=== PATIENT | female | born 1970 | race Two or more races ===

== ENCOUNTER 2024-08-10 13:32 | Outpatient (AMB) | payer MEDICAID, SELFPAY ==
[2024-08-10 13:48] VITALS: BP 148/84; PULSE 89; RESP 19; TEMP 36.1; O2SAT 95; BMI 38.9
--- NOTE | 2024-08-10 13:48 | PD.ORTHCLVIS ---
Vital signs 08/10/24 13:48 Height 1.6 m Height Method Stated Weight 99.875 kg Weight Measurement Method Standing Scale BMI 38.9 BP 148/84 H Blood Pressure Source Automatic Cuff Blood Pressure Location Right Upper Arm Position Sitting Respiration 19 Pulse 89 Pulse Source Monitor Temp 97.0 F Temp Source Temporal Artery Scan Pulse Oximetry (%) 95 Oxygen Delivery Method Room Air Med/Allergies Allergies & Medications Allergies triamcinolone [From Kenalog] Allergy (Intermediate, Verified 08/10/24 13:49) Headache Medication Reconciliation carvedilol 3.125 mg tablet (Coreg) 3.125 mg PO BID 01/24/24 [History Confirmed 08/10/24] cetirizine 10 mg tablet (Zyrtec) 10 mg PO QDAY 05/11/24 [History Confirmed 08/10/24] cholecalciferol (vitamin D3) 25 mcg (1,000 unit) tablet (Vitamin D3) 25 mcg PO QDAY 05/11/24 [History Confirmed 08/10/24] diphenhydramine HCl 25 mg capsule (Benadryl) 25 mg PO HS PRN Allergy Symptoms 05/11/24 [History Confirmed 08/10/24] omega-3 fatty acids 1,000 mg PO QDAY 05/11/24 [History Confirmed 08/10/24] semaglutide 1 mg/dose (4 mg/3 mL) subcutaneous pen injector (Ozempic) 1 mg subcut QWEEK 05/11/24 [History Confirmed 08/10/24] acetaminophen 500 mg tablet (Acetaminophen Extra Strength) 1,000 mg (2 x 500 mg) PO Q6H PRN pain #90 tabs 05/14/24 [Rx Confirmed 08/10/24] aspirin 81 mg tablet,delayed release 81 mg PO BID #60 tabs 05/14/24 [Rx Confirmed 08/10/24] doxycycline hyclate 100 mg tablet 100 mg PO BID #14 tabs 05/14/24 [Rx Confirmed 08/10/24] oxycodone 5 mg tablet 5 mg PO Q6H PRN pain #28 tabs 05/14/24 [Rx Confirmed 08/10/24] pregabalin 75 mg capsule 75 mg PO BID #45 caps 05/14/24 [Rx Confirmed 08/10/24] sennosides 8.6 mg-docusate sodium 50 mg tablet (Senna-S) 1 tab-cap PO QDAY #30 tabs 05/14/24 [Rx Confirmed 08/10/24] cyclobenzaprine 5 mg tablet 5 mg PO QHS PRN muscle spasm #30 tabs 06/01/24 [Rx Confirmed 08/10/24] oxycodone 5 mg tablet 5 mg PO Q6H PRN pain #28 tabs 06/01/24 [Rx Confirmed 08/10/24] Subjective Visit Visit for: follow up visit and knee Immunization / Flu Flu Vaccine in the Last 12 Months: No Flu Vaccine Exclusion Criteria: No Exclusion Criteria History of Present Illness Chief complaint: F/U ON POST OP Date of injury / onset of symptoms: 05/14/24 Date of 1st surgery (if applicable): 05/14/24 Patient is doing well status post total knee replacement. She is 12 weeks postop. SHe has minimal pain. She walks with no assistive device Personal History Occupation: UNEMPLOYED Red flag PMH: BMI and none Pain Pain level (0-10): 6 Pain duration: COMES AND GOES Pain location: anterior Pain quality: sharp and other (specify) Pain timing: other (specify) Associated signs & symptoms: other (specify) (COLDER WEATHER IS CAUSING PAIN ) Ambulatory data Ambulatory device: none Treatments Improvement with previous injections: No Improvement with PT: No Improvement with NSAIDS: n/a Review of Systems Review of Systems: All systems negative unless otherwise noted in HPI. Exam Exam Patient is in no acute distress and is cooperative with the examination today. Patient has a normal mood and affect. Breathing is nonlabored. In no respiratory distress. Bilateral extremities were evaluated and demonstrates sensation intact to light touch. Palpable pedal pulses are present. No significant edema is present. Incision is clean dry intact. Range of motion 0 to 100 degrees Assessment and Plan Problem List (1) History of total left knee replacement: Status: Acute Plan: Patient is doing well status post left total knee replacement. She is doing well from her left total knee replacement. Plan We will see her back in 3-4 months Office Procedures GNS Level of Care Nursing/Assessment Patient Status: Established Patient Nursing Assessment/Reassesment: Medication Reconciliation, Update PMH in EMR and Vital Signs Coordination of Care: Complex Care and Chronic Disease 1-5, Education Complex Pt/Fam, Consent,records obtained, informed consent, Results/Orders obtained and Staff clarify orders Established Patient Charge Established Patient Point Assignment: 95 Past Medical History Past Medical History Have you ever been diagnosed with any of the following: Neurological Problems Seizures: No Cardiology Problems Congestive Heart Failure: No Hypertension: Yes Respiratory Problems Chronic Obstructive Pulmonary Disease (COPD): No Smoking: No Smoking Exposure: No Stomache/Intestinal Problems Hepatitis: No Obesity: Yes Genital/Urinary Problems Renal Disease: No Reproductive Problems Previous Pregnancies: Yes (4) Musculoskeletal Problems Arthritis: Yes Endocrine Problems Diabetes Mellitus Type 1: No Diabetes Mellitus Type 2: No Other Problems Hospitalization: Yes (surgery) Shingles: No Blood Transfusions: Yes Blood Transfusion Reaction: No Anesthesia Reactions: Yes (increased heart rate) Cancer: No Surgical History Total Knee Replacement: Yes Knee Pain S/P left total knee replacement, patient is doing well with no complains other than experiencing sharp pains on both of her knees because cooler weather. Patient takes ibuprofen and that seems to help with pain. She is wondering if this the sharp pain on her left knee is normal. Involved knee: left Onset: gradual Location of pain: anterior and inferior Pain scale (0-10): 6 Character: stabbing and throbbing Timing of pain: constant Exacerbated by: other (weather) Relieved by: NSAIDs History of occupational/recreational activity with repetitive motion: Yes
== END 2024-08-10 14:21 | disposition home or self-care (01) ==
PROVIDERS: PCP Student in an Organized Health Care Education/Training Program; Referring Provider Student in an Organized Health Care Education/Training Program; Supervising Provider Orthopaedic Surgery Adult Reconstructive Orthopaedic Surgery; Visit Provider Orthopaedic Surgery Adult Reconstructive Orthopaedic Surgery
DX: Z96.652 Presence of left artificial knee joint (principal); I10 Essential (primary) hypertension
CPT/HCPCS: 99213; G0463

== ENCOUNTER 2025-07-12 07:46 | Outpatient (AMB) | payer BC, SELFPAY ==
--- NOTE | 2025-07-12 08:01 | PD.ORTHCLVIS ---
Vital signs 07/12/25 08:03 Height 1.6 m Height Method Measured Weight 101.151 kg Weight Measurement Method Standing Scale BMI 39.5 BP 149/88 H Blood Pressure Source Automatic Cuff Blood Pressure Location Left Upper Arm Position Sitting Respiration 16 Pulse 62 Pulse Source Monitor Temp 97.2 F Temp Source Temporal Artery Scan Pulse Oximetry (%) 98 Oxygen Delivery Method Room Air Med/Allergies Allergies & Medications Allergies triamcinolone (From Kenalog) Allergy (Intermediate, Verified 07/12/25 08:04) Headache Medication Reconciliation carvedilol 3.125 mg tablet (Coreg) 3.125 mg PO BID 01/24/24 [History Confirmed 07/12/25] cetirizine 10 mg tablet (Zyrtec) 10 mg PO QDAY 05/11/24 [History Confirmed 07/12/25] cholecalciferol (vitamin D3) 25 mcg (1,000 unit) tablet (Vitamin D3) 25 mcg PO QDAY 05/11/24 [History Confirmed 07/12/25] diphenhydramine HCl 25 mg capsule (Benadryl) 25 mg PO HS PRN Allergy Symptoms 05/11/24 [History Confirmed 07/12/25] omega-3 fatty acids 1,000 mg PO QDAY 05/11/24 [History Confirmed 07/12/25] semaglutide 1 mg/dose (4 mg/3 mL) subcutaneous pen injector (Ozempic) 1 mg subcut QWEEK 05/11/24 [History Confirmed 07/12/25] acetaminophen 500 mg tablet (Acetaminophen Extra Strength) 1,000 mg (2 x 500 mg) PO Q6H PRN pain #90 tabs 05/14/24 [Rx Confirmed 07/12/25] aspirin 81 mg tablet,delayed release 81 mg PO BID #60 tabs 05/14/24 [Rx Confirmed 07/12/25] doxycycline hyclate 100 mg tablet 100 mg PO BID #14 tabs 05/14/24 [Rx Confirmed 07/12/25] oxycodone 5 mg tablet 5 mg PO Q6H PRN pain #28 tabs 05/14/24 [Rx Confirmed 07/12/25] pregabalin 75 mg capsule 75 mg PO BID #45 caps 05/14/24 [Rx Confirmed 07/12/25] sennosides 8.6 mg-docusate sodium 50 mg tablet (Senna-S) 1 tab-cap PO QDAY #30 tabs 05/14/24 [Rx Confirmed 07/12/25] cyclobenzaprine 5 mg tablet 5 mg PO QHS PRN muscle spasm #30 tabs 06/01/24 [Rx Confirmed 07/12/25] oxycodone 5 mg tablet 5 mg PO Q6H PRN pain #28 tabs 06/01/24 [Rx Confirmed 07/12/25] Exam Exam Patient is in no acute distress and is cooperative with the examination today. Patient has a normal mood and affect. Breathing is nonlabored. In no respiratory distress. Bilateral extremities were evaluated and demonstrates sensation intact to light touch. Palpable pedal pulses are present. No significant edema is present. Incision is clean dry intact. Range of motion 0 to 100 degrees this is for the left knee Right knee demonstrates tenderness to palpation laterally. There is valgus alignment. The knee feels stable varus valgus stress as well as AP translation Assessment and Plan Problem List (1) History of total left knee replacement: Status: Acute Plan: Patient is doing well status post left total knee replacement. She is doing well from her left total knee replacement. (2) Arthritis of knee, right: Status: Acute Plan: Patient is a 55-year-old female with right knee pain and right knee arthritis. We discussed different treatment options. She has failed conservative treatment clued injections, anti-inflammatories, and physical therapy. We thus discussed total knee replacement as a reasonable option Plan The nature and purpose of the total knee replacement, alternative method(s) of treatment, the material risks involved, and the possibility of complications were fully explained to the patient. The patient does NOT have any of the following contraindications to TKA: - Active infection of the knee joint, OR - Active systemic bacteremia, OR - Active skin infection or open wound at surgical site, OR - Neuropathic arthritis, OR - Severe, rapidly progressive neurological disease, OR - Severe medical condition that makes risks of surgery outweigh the potential benefit The patient was told the most common risks and complications associated with a total knee replacement include, but are not limited to: blood clots in the leg, fatal pulmonary embolism, dislocation of the prosthesis, intraoperative and postoperative fractures of the femur or tibia, infection, failure of the prosthesis or grafting materials, complications from anesthesia, reactions to blood transfusions, postoperative leg length inequality, instability of the knee replacement, nerve damage or injury, vascular injury, delayed wound healing, infection, other injury or even . In addition, there are risks associated with anesthesia given during this operation. Also, the patient was told that after undergoing a total knee replacement there may still be persistent pain or disability. The patient was informed that the success of this operation in part depends upon the mechanical devices which are going to be implanted and that these devices can fail or malfunction, and may need to be repaired or replaced and there are no guarantees as to the longevity of this device or its parts and that it or its parts could fail prematurely. The patient was also notified that during the course of surgery, there may be a need to use bone graft from donors, and that any bone graft used will be carefully screened for communicable diseases, including AIDS, hepatitis, Humberto-Creutzfeldt, or other diseases, but despite the screening procedures, there is a small chance that they could contract one of these diseases. Finally, the patient was asked to follow completely and fully with all advice and recommended treatments, and that recovery and ultimate outcome are affected by their compliance with recommended treatment. We discussed the risks, benefits and treatment alternatives, and the patient is interested in proceeding with surgery. We will try to set this up as expeditiously as possible. Office Procedures GNS Level of Care Nursing/Assessment Patient Status: Established Patient Nursing Assessment/Reassesment: Medication Reconciliation, Update PMH in EMR and Vital Signs Coordination of Care: Complex Care and Chronic Disease 1-5, Education Complex Pt/Fam, Consent,records obtained, informed consent, Results/Orders obtained and Staff clarify orders Special Needs: Language special needs Established Patient Charge Established Patient Point Assignment: 95 Established Patient Point Charge: Level 3 (80-115) MA Intake Visit Data Collection New Patient or Established: Established Patient (seen at [facility] within 3 years) Reason for Visit:: RIGHT KNEE OSTEOARTHRITIS Seen by Clinical Staff ONLY (RN/MA): No Food Photographer Required: Yes PCP or OBGYN visit in last 3 months: Yes Hx Now: No Do You Feel Safe at Home: Yes Authorities Contacted: N/A Questionairres Past Medical History Past Medical History Have you ever been diagnosed with any of the following: Neurological Problems Seizures: No Cardiology Problems Congestive Heart Failure: No Hypertension: Yes Respiratory Problems Chronic Obstructive Pulmonary Disease (COPD): No Smoking: No Smoking Exposure: No Stomache/Intestinal Problems Hepatitis: No Obesity: Yes Genital/Urinary Problems Renal Disease: No Reproductive Problems Previous Pregnancies: Yes (4) Musculoskeletal Problems Arthritis: Yes Endocrine Problems Diabetes Mellitus Type 1: No Diabetes Mellitus Type 2: No Other Problems Hospitalization: Yes (surgery) Shingles: No Blood Transfusions: Yes Blood Transfusion Reaction: No Anesthesia Reactions: Yes (increased heart rate) Cancer: No Surgical History Total Knee Replacement: Yes Subjective Visit Visit for: follow up visit and knee Immunization / Flu Flu Vaccine in the Last 12 Months: Yes Flu Vaccine Exclusion Criteria: Already Received History of Present Illness Chief complaint: RIGHT KNEE OSTEOARTHRITIS Patient is a 55-year-old female with right knee pain and right knee arthritis. She is status post left total knee replacement over 1 year ago. She reports that she is doing well and has minimal pain. The right knee is affecting her quality life and happiness. The pain has been ongoing for over a year. She has tried injections, anti-inflammatories, and home exercises at home. She has had over 3 injections with minimal relief. She reports the pain is affecting her quality life and happiness Pain Pain level (0-10): 7 Pain location: anterior Pain quality: sharp Pain timing: increases with activity Associated signs & symptoms: none Ambulatory data Ambulatory device: none Treatments Improvement with previous injections: No Improvement with PT: No Improvement with NSAIDS: no Review of Systems Review of Systems: All systems negative unless otherwise noted in HPI.
[2025-07-12 08:03] VITALS: BP 149/88; PULSE 62; RESP 16; TEMP 36.2; O2SAT 98; BMI 39.5
--- NOTE | 2025-07-12 08:23 | XR_ITS ---
EXAMINATION: Bilateral knees 2 views Right lateral knee left lateral knee 2 views Bilateral axial knee single view TECHNIQUE: Bilateral AP knees standing single view, bilateral. Knee standing single view flexion Standing right lateral knee left lateral knee 2 views Bilateral extremity single view total 5 views Date and time: July 12, 2025, 0827 hours INDICATIONS: Left knee surgery 1 year ago right knee pain beginning 4 years ago FINDINGS: Right knee advanced tricompartment osteoarthritis Severe narrowing [id number] lateral joint space right knee No fracture Total left knee arthroplasty. Satisfactory alignment. No loosening of the prosthetic components IMPRESSION: Advanced right knee tricompartment osteoarthritis including severe narrowing lateral joint space
== END 2025-07-12 09:08 | disposition home or self-care (01) ==
PROVIDERS: PCP Student in an Organized Health Care Education/Training Program; Referring Provider Student in an Organized Health Care Education/Training Program; Supervising Provider Orthopaedic Surgery Adult Reconstructive Orthopaedic Surgery; Visit Provider Orthopaedic Surgery Adult Reconstructive Orthopaedic Surgery
DX: M17.11 Unilateral primary osteoarthritis, right knee (principal); M25.561 Pain in right knee; Z96.652 Presence of left artificial knee joint; I10 Essential (primary) hypertension
CPT/HCPCS: 73564; 99213; G0463

== ENCOUNTER 2025-08-12 08:05 | Day surgery (SDC) | payer BC, SELFPAY ==
--- NOTE | 2025-08-09 08:35 | EKG_ITS ---
[facility] Test Date: 2025-08-09 Pat Name: ROBERTO CANO Department: Room: - Gender: Female Residential Support Specialist: FARZANA : 1970 Requested By: Gary Mclaughlin Order Number: [id number] Reading MD: Gary Mclaughlin Measurements Intervals [place] Rate: 56 P: 42 W[place]: 178 QRS: -26 QRSD: 82 T: 1 QT: 416 QTc: 404 Interpretive Statements SINUS BRADYCARDIA POSSIBLE ANTERIOR MYOCARDIAL INFARCTION , PROBABLY OLD [30 ms Q WAVE IN V3/V4, OR R < 0.2 mV IN V4] INFERIOR MYOCARDIAL INFARCTION , PROBABLY OLD [40+ ms Q WAVE AND/OR ST/T ABNORMALITY IN II/aVF] Compared to ECG 05/11/2024 12:21:13 Myocardial infarct finding now present Sinus rhythm no longer present Left-axis deviation no longer present /store/S0/[id number]/[id number].pdf
[2025-08-09 08:37] VITALS: BMI 42.8
[2025-08-09 09:36] LABS: Basophils # (Auto) 0.0 Thou/mm3 (0.0-0.2); Basophils % (Auto) 1 % (0-2.5); Eosinophils # (Auto) 0.2 Thou/mm3 (0.0-0.5); Eosinophils % (Auto) 3 % (0-10); Hematocrit 41.2 % (36.0-46.0); Hemoglobin 13.5 g/dL (12.0-16.0); Immature Granulocytes Auto 0.04 Thou/mm3 (0.00-0.00); Lymphocytes # (Auto) 2.8 Thou/mm3 (1.0-4.8); Lymphocytes % (Auto) 42 % (10-50); Mean Corpuscular HGB Conc 32.8 g/dl (31.0-37.0); Mean Corpuscular Hemoglobin 28.5 pg (25.0-35.0); Mean Corpuscular Volume 87 fL (80-100); Monocytes # (Auto) 0.5 Thou/mm3 (0.0-0.8); Monocytes % (Auto) 7 % (0-12); Neutrophils # (Auto) 3.2 Thou/mm3 (1.8-7.7); Neutrophils % (Auto) 47 % (37-80); Nucleated Red Blood Cell # 0.00 Thou/mm3 (0.00-0.00); Nucleated Red Blood Cell % 0 /100 WBC (0); Platelet Count 240 Thou/mm3 (140-440); RDW Standard Deviation 42.6 fL (36.4-46.3); Red Blood Count 4.73 Miln/mm3 (4.00-5.20); White Blood Count 6.7 Thou/mm3 (3.6-11.0)
[2025-08-09 09:54] LABS: INR 0.9 (0.9-1.3); Partial Thromboplastin Time 28.0 Seconds (22.0-36.0); Prothrombin Time 9.8 Seconds (9.0-12.2)
[2025-08-09 10:02] LABS: Alanine Aminotransferase 103 U/L (10-49); Albumin, Serum 4.5 gm/dL (3.5-5.0); Albumin/Globulin Ratio 1.8 (1.2-2.2); Alkaline Phosphatase 113 U/L (46-116); Anion Gap 9 (7-16); Aspartate Amino Transferase 64 U/L (0-34); BUN/Creatinine Ratio 19 Ratio (12-20); Bilirubin,Total 0.4 mg/dL (0.3-1.2); Blood Urea Nitrogen 15 mg/dL (9-23); Calcium 9.5 mg/dL (8.3-10.6); Calcium (Corrected) 9.5 mg/dL (8.5-10.1); Carbon Dioxide 28.7 mMol/L (20.0-31.0); Chloride 105 mMol/L (98-107); Creatinine (Component) 0.8 mg/dL (0.6-1.3); Estimated Creatinine Clearance 88.9 mL/min (>60); Globulin 2.5 gm/dL (2.3-3.5); Glucose 124 mg/dL (74-106); Osmolality,Calculated 286 (275-295); Potassium 4.2 mMol/L (3.4-5.1); Sodium 143 mMol/L (136-145); Total Protein 7.0 gm/dL (5.7-8.2); eGFR > 60 See Note
--- NOTE | 2025-08-09 14:19 | SUR.PREOP ---
Confirmed with pt to come in at 0830 on Tuesday for surgery.
[2025-08-12] VITALS (18 sets, daily range): BP systolic 132–202; BP diastolic 73–107; PULSE 69–99; RESP 12–23; TEMP 36.2–36.6; O2SAT 92–100; BMI 42.8; BMI 13.0
[2025-08-12] MEDS: ACETAMINOPHEN 325 MG TABLET 650 MG PO (09:12)
[2025-08-12] MEDS: PREGABALIN 75 MG CAPSULE PO (09:13)
[2025-08-12] MEDS: MELOXICAM 7.5 MG TABLET PO (09:13)
[2025-08-12] MEDS: RINGERS LACTATED 1000 ML 1,000 ML 20 ML IV (09:14)
--- NOTE | 2025-08-12 09:25 | SUR.PREOP ---
Patient expressed gratitude for prayer before their procedure.
--- NOTE | 2025-08-12 11:33 | PD.SUROPNT ---
Date of Procedure 08/12/25 Pre Op Diagnosis right knee osteoarthritis Post Op Diagnosis right knee osteoarthritis Procedure right total knee replacement bishop Findings full thickness cartilage loss Procedure Description Indication: The patient is a 55 year old who has a long history of right knee pain. X-rays show degenerative arthritis involving the knee. Over the past several years the patient has had increasing pain, progressive limitation in function. He has failed conservative measures including activity modification, physical therapy, injections, anti-inflammatories, and assistive devices. After a lengthy discussion of the risks and benefits, the patient presents now for total knee replacement. The nature and purpose of the total knee replacement, alternative method(s) of treatment, the material risks involved, and the possibility of complications were fully explained to the patient. The patient was told the most common risks and complications associated with a total knee replacement include, but are not limited to blood clots in the leg, fatal pulmonary embolism, dislocation of the prosthesis, intraoperative and postoperative fractures of the femur or tibia, infection, failure of the prosthesis or grafting materials, complications from anesthesia, reactions to blood transfusions, postoperative leg length inequality, instability of the knee replacement, nerve damage or injury, vascular injury, delayed wound healing, infections, other injury or even . In addition, there are risks associated with anesthesia given during this operation, temporary or permanent numbness on the skin lateral to the incision can be a complication unique to total knee surgery, and kneeling can be painful after knee replacement surgery. Also, the patient was told that after undergoing a total knee replacement there may still be pain or disability. The patient was informed that the success of this operation in part depends upon the mechanical devices which are going to be implanted and that these devices can fail or malfunction, and may need to be repaired or replaced and there are no guarantees as to the longevity of this device or its part and that it or its parts could fail prematurely. Finally, the patient was asked to follow completely and fully with all advice and recommended treatments, and that recovery and ultimate outcome are affected by their compliance with recommended treatment. Surgical technique: Patient was marked and consented in the pre-operative area. The patient was brought to the operating room and placed on the operating table in a supine position. Prior to positioning, a timeout procedure was performed between the surgeon, the anesthesiologist, and the nursing staff where the patient and the operative side were identified and confirmed. After adequate general anesthetic was obtained, the right lower extremity was prepped and draped in the usual sterile fashion. A weight based dose of Cefazolin were administered within 1 hour prior to incision. The extremity was exsanguinated with an esmarch badge and tourniquet inflated to 250mmHg. A midline incision was made. A median parapatellar arthrotomy was made. The patella was subluxed laterally. A drill hole was made in the intramedullary canal to accept the intramedullary alignment device. The distal femur was cut for 5 degrees valgus made based on preoperative templating. The rotational alignment of the planned femoral component was confirmed by comparing the anterior femoral cut to the AP [place] (Billings's line) and the trans-epicondylar axis. The femur was sized to a size 4, and the corresponding? cutting block was pinned to the distal femur. Posterior condylar, posterior chamfer, anterior condylar and anterior chamfer cuts were made being careful to avoid injury to the medial and lateral collateral ligaments. Next, attention was turned to the tibia. The extramedullary alignment guide was placed. A bone sparing perpendicular cut to the mechanical axis of tibia was performed.? The tibia was sized to a size [4] and the corresponding cutting block was pinned to the proximal tibia and lug hole was drilled and the keel punch impacted. A laminar display designer outside was used to open up the back of the knee and remove posterior osteophytes in posterior capsule. A trial reduction was performed with a size [4] femoral component and a size [4] keeled tibial component. The patella tracked centrally, and no lateral retinacular release was necessary. The trial implants were removed. The cut bone surfaces were lavaged. A size [4] right femoral component, a size [4] keeled tibial component, and a size [33] patellar button were impacted into position. The knee was felt to be well balanced in the sagittal and coronal plane. The final [4x13] mm cruciate-substituting articular insert was impacted into the tibial tray. The knee was brought out to full extension, flexed up to 120 degrees. It was stable to varus and valgus stress and appropriately balanced in flexion and extension. The wounds were copiously irrigated following deflation of tourniquet. The medial retinaculum was reapproximated with #1 vicryl and quill. The subcutaneous tissues were closed with 0 and 2-0 interrupted Vicryl. The skin was closed with 3-0 Monofilament V loc suture. A sterile dressing was applied. The patient was transferred to a bed and brought to recovery in stable condition. The patient tolerated the procedure well. There were no intraoperative complications. Sponge and needle counts were correct times 2. As the attending surgeon, I attest I was present and performed the entire operation. Grafts/Implants Size [4] CR Femur Size [4] Tibia 10mm poly CS Anesthesia spinal Implants Implants comments: [place] Pathology / specimen None Pathology comment: none Estimated Blood Loss 150 Condition Stable Disposition same day Surgeon Ted Goncalves MD Surgical Staff Operation Date: 08/12/25 13:45 Case Staff Anesthesiologist: Syed Styles RN First Assistant: Aleshia Rogers
--- NOTE | 2025-08-12 11:54 | SUR.PHASEI ---
1154: Pt. arrived with oral airway in place, hypertensive, MD Styles aware, Labetalol to be administered, remaining vitals stable, breathing unlabored, no signs of distress, dressing to right knee CDI, no active bleed noted, bilateral dorsalis pedis pulses strong and regular, cap refill to bilateral feet less than 3 seconds, report received from Glendy BURK and MD Styles.
[2025-08-12] MEDS: HYDROmorphone INJ 2 MG/ML VIAL 0.4 MG IVP (12:14)
--- NOTE | 2025-08-12 12:24 | XR_ITS ---
Examination: Knee, right, 3 views Technique: Knee AP, lateral, oblique 3 views Date and time of exam: August 12, 2025, 1234 hours INDICATIONS: Postop knee replacement FINDINGS: Moderate osteopenia. Total right knee arthroplasty. Satisfactory alignment No fracture IMPRESSION: Total right knee arthroplasty with satisfactory alignment
[2025-08-12] MEDS: fentaNYL CIT INJ 50 mCg/ML AMP 2ML 25 MCG IVP (12:33)
--- NOTE | 2025-08-12 12:56 | SUR.PHASEI ---
Pt. lethargic, wakes to name, answers questions, then drifts back to sleep. While pt. awake, nurse asked if she had pain, and pt. stated she had 8/10 pain. Withholding pain medication D/T pt. being too lethargic. Pt. is needed to be reminded to take deep breaths due to breathing being shallow and SPO2 going to 88% on 4L OM. Educated pt. that she needs to be more awake and alert for pain medication to be administered safely.
[2025-08-12] MEDS: ONDANSETRON INJ 2 MG/ML INJ 2 ML 4 MG IVP (15:37)
--- NOTE | 2025-08-12 15:55 | SUR.PHASEII ---
Pt. stated she was diagnosed with sleep apnea awhile ago. When asked if she has a CPAP at home, pt. stated she returned it because she didn't like how it made her throat dry. Pt. SPO2 drops to 82% when sleeping and it fluctuates back to 91% on and off. When awake, pt. SPO2 is 95% and higher. Notified MD Styles, and he stated his concern was that when she takes her pain medication, her sleep apnea would get worse. MD Styles told nurse to make MD Goncalves aware and see how he would like to proceed. Notified MD Goncalves, and made him aware of MD Wang concerns, and MD Goncalves stated that her SPO2 of 82%-91% is probably her baseline at home, and that he was ok to send her home and to tell her to follow up with her primary doctor in regards to her sleep apnea. Notified MD Styles on MD Goncalves's response, no new orders given by MD Styles other than if MD Goncalves said she is good to go, then send her home. Nurse told pt. to follow up with her primary doctor in regards to her sleep apnea, educated pt. on importance of CPAP machine, and advised her to go back to get CPAP, pt. verbalized understanding. Also advised pt. to sleep sitting up and not to lay flat while sleeping d/t laying flat can cause SPO2 to drop further while sleeping. Pt. and her verbalized understanding. Dressing to right knee CDI, no active bleed noted, bilateral dorsalis pedis pulses strong and regular, cap refill to bilateral feet less than 3 seconds, pt. ambulated with physical therapy and tolerated well. Gave discharge instructions to the pt. and her ride using in-house mechanical manufacturing engineer Olya, both verbalized understanding and had no further questions. Pt. left with all personal belongings.
== END 2025-08-12 15:55 | disposition home or self-care (01) ==
PROVIDERS: Anesthesiology; PCP Student in an Organized Health Care Education/Training Program; Referring Provider Orthopaedic Surgery Adult Reconstructive Orthopaedic Surgery; Visit Provider Orthopaedic Surgery Adult Reconstructive Orthopaedic Surgery
PROC: (CPT 27447; principal; 2025-08-12 13:30)
DX: M17.11 Unilateral primary osteoarthritis, right knee (principal); M25.761 Osteophyte, right knee; Z01.810 Encounter for preprocedural cardiovascular examination
CPT/HCPCS: 27447; 36415; 73562; 80053; 85025; 85610; 85730; 93005; 97162; A4217; A4649; C1776; J0131; J0690; J1171; J1885; J1920; J2250; J2405; J2795; J3010; J3490; J7030; J7120; A9270

== ENCOUNTER 2025-08-27 10:38 | Outpatient (AMB) | payer BC, SELFPAY ==
--- NOTE | 2025-08-27 11:08 | PD.ORTHCLVIS ---
Vital signs 08/27/25 11:26 Height 1.57 m Height Method Stated Weight 103.419 kg Weight Measurement Method Standing Scale BMI 41.9 BP 146/93 H Blood Pressure Source Automatic Cuff Blood Pressure Location Left Upper Arm Position Sitting Respiration 18 Pulse 112 H Pulse Source Monitor Temp 97.6 F Temp Source Temporal Artery Scan Pulse Oximetry (%) 97 Oxygen Delivery Method Room Air Med/Allergies Allergies & Medications Allergies triamcinolone (From Kenalog) Allergy (Intermediate, Verified 08/27/25 11:27) Headache Medication Reconciliation cholecalciferol (vitamin D3) 25 mcg (1,000 unit) tablet (Vitamin D3) 25 mcg PO QDAY 05/11/24 [History Confirmed 08/27/25] omega-3 fatty acids 1,000 mg PO QDAY 05/11/24 [History Confirmed 08/27/25] diclofenac potassium 50 mg tablet 50 mg PO Q12H PRN pain 08/09/25 [History Confirmed 08/27/25] acetaminophen 500 mg tablet (Acetaminophen Extra Strength) 1,000 mg (2 x 500 mg) PO Q6H PRN pain #90 tabs 08/12/25 [Rx Confirmed 08/27/25] aspirin 81 mg tablet,delayed release 81 mg PO BID #60 tabs 08/12/25 [Rx Confirmed 08/27/25] doxycycline hyclate 100 mg tablet 100 mg PO BID #14 tabs 08/12/25 [Rx Confirmed 08/27/25] gabapentin 300 mg capsule 300 mg PO .qhs #30 caps 08/12/25 [Rx Confirmed 08/27/25] oxycodone 5 mg tablet 5 mg PO Q6H PRN pain #28 tabs 08/12/25 [Rx Confirmed 08/27/25] sennosides 8.6 mg-docusate sodium 50 mg tablet (Senna-S) 1 tab-cap PO QDAY #30 tabs 08/12/25 [Rx Confirmed 08/27/25] cyclobenzaprine 5 mg tablet 5 mg PO .qhs PRN muscle spasm #30 tabs 08/19/25 [Rx Confirmed 08/27/25] oxycodone 5 mg tablet 5 mg PO Q6H PRN pain #28 tabs 08/19/25 [Rx Confirmed 08/27/25] oxycodone 5 mg tablet 5 mg PO Q6H PRN pain #28 tabs 08/26/25 [Rx Confirmed 08/27/25] Exam Exam Patient is in no acute distress and is cooperative with the examination today. Breathing is nonlabored. Patient has a normal mood and affect. Bilateral extremities were evaluated and demonstrates sensation intact to light touch. Palpable pedal pulses are present. No significant edema is present. Bilateral hips were examined. The patient has no pain with log roll of the hips. Internal rotation to 30 degrees and external rotation to 30 degrees is painless. Negative FADIR. Right knee was examined today. The right knee is in neutral alignment. The incision is clean dry and intact. Assessment and Plan Problem List (1) History of total left knee replacement: Status: Acute Plan: Patient is doing well status post left total knee replacement. She is doing well from her left total knee replacement. (2) Arthritis of knee, right: Status: Acute Plan: patient is doing well status post right total knee replacement. Will start with therapy Office Procedures GNS Level of Care Nursing/Assessment Patient Status: Established Patient Nursing Assessment/Reassesment: Medication Reconciliation, Update PMH in EMR and Vital Signs Coordination of Care: Complex Care and Chronic Disease 1-5, Education Complex Pt/Fam, Consent,records obtained, informed consent, Results/Orders obtained and Staff clarify orders Special Needs: Language special needs Established Patient Charge Established Patient Point Assignment: 95 Established Patient Point Charge: EP Level 3 (80-115) MA Intake Visit Data Collection New Patient or Established: Established Patient (seen at [facility] within 3 years) Reason for Visit:: 2 WK R TKA Seen by Clinical Staff ONLY (RN/MA): No Shotblast Operator Required: Yes PCP or OBGYN visit in last 3 months: Yes Hx Now: No Do You Feel Safe at Home: Yes Authorities Contacted: N/A Questionairres Past Medical History Past Medical History Have you ever been diagnosed with any of the following: Neurological Problems Seizures: No Cardiology Problems Congestive Heart Failure: No Hypertension: Yes (not taking meds anymore) Respiratory Problems Chronic Obstructive Pulmonary Disease (COPD): No Smoking: No Smoking Exposure: No Stomache/Intestinal Problems Hepatitis: No Obesity: Yes Genital/Urinary Problems Renal Disease: No Reproductive Problems Previous Pregnancies: Yes (4) Musculoskeletal Problems Arthritis: Yes Endocrine Problems Diabetes Mellitus Type 1: No Diabetes Mellitus Type 2: No Other Problems Hospitalization: Yes (surgery) Shingles: No Blood Transfusions: Yes Blood Transfusion Reaction: No Anesthesia Reactions: No Chicken Pox: Yes Measles: Yes Clostridium Difficile: No Cancer: No Surgical History Total Knee Replacement: Yes Subjective Visit Visit for: follow up visit and knee Immunization / Flu Flu Vaccine in the Last 12 Months: Yes Flu Vaccine Exclusion Criteria: Already Received History of Present Illness Chief complaint: s/p r tka Patient is doing well s/p R TKA. She is doing well Pain Pain level (0-10): 7 Pain location: anterior Pain quality: sharp Pain timing: increases with activity Associated signs & symptoms: none Ambulatory data Ambulatory device: none Treatments Improvement with previous injections: No Improvement with PT: No Improvement with NSAIDS: no Review of Systems Review of Systems: All systems negative unless otherwise noted in HPI.
[2025-08-27 11:26] VITALS: BP 146/93; PULSE 112; RESP 18; TEMP 36.4; O2SAT 97; BMI 41.9
== END 2025-08-27 11:18 | disposition home or self-care (01) ==
LOC: HODSRG 10:38
PROVIDERS: PCP Student in an Organized Health Care Education/Training Program; Referring Provider Student in an Organized Health Care Education/Training Program; Supervising Provider Orthopaedic Surgery Adult Reconstructive Orthopaedic Surgery; Visit Provider Orthopaedic Surgery Adult Reconstructive Orthopaedic Surgery
DX: Z47.1 Aftercare following joint replacement surgery (principal); Z96.651 Presence of right artificial knee joint; I10 Essential (primary) hypertension; E66.9 Obesity, unspecified; Z68.41 Body mass index [BMI] 40.0-44.9, adult
CPT/HCPCS: 99213; G0463